=== PATIENT | male | born 1970 | race African-American/Black ===

== ENCOUNTER 2017-05-31 09:42 | Emergency (ER) | payer MEDICAID, OTHER ==
[~2017-05-31] VITALS: Ht 172.7 cm; Wt 127.0 kg
[~2017-05-31 09:42] MED LIST: ASPIR 8181 MG ORAL; ATORVASTATIN CA20 MG ORAL; BACTRIM DS TAB1 EAC1 ORAL; COLACE100 MG ORAL; COREG25 MG ORAL; FLAGYL500 MG ORAL; FLOMAX0.4 MG ORAL; HYDRALAZINE HC100 MG ORAL; IBUPROFEN600 MG ORAL; KEFLEX500 MG ORAL; NIFEDIPINE XL30 M1 ORAL; NKM; NORCO 5-325 TA1 EACH ORAL
[2017-05-31 10:21] VITALS: BP 138/82
[2017-05-31 11:23] VITALS: BP 138/82
--- NOTE | 2017-05-31 13:31 | Emergency Room Report ---
History of Present Illness General Chief Complaint: Upper Extremity Injury Source: Patient Present Illness HPI 46-year-old male presents ED complaining of right finger pain and swelling. States that this morning he was cracking his knuckles and felt a sharp pain. patient thinks he may have dislocated his finger. States swelling and pain to right middle finger. 8/10, throbbing, nonradiating. Denies any other injuries. No other aggravating relieving factors. Denies any other associated symptoms Allergies: Coded Allergies: No Known Allergies (Unverified , 04/20/13) Patient History Past Medical History: CHF, renal disease Pertinent Family History: none Social History: Denies: smoking, alcohol use, drug use Immunizations: UTD Reviewed Nursing Documentation: PMH: Agreed, PSxH: Agreed Nursing Documentation-PMH Hx Cardiac Problems: Yes - chf, renal failure Hx Cancer: No Hx Gastrointestinal Problems: No Hx Neurological Problems: No Review of Systems All Other Systems: negative except mentioned in HPI Physical Exam Vital Signs Date Time Temp Pulse Resp B/P (MAP) Pulse Ox O2 Delivery O2 Flow Rate FiO2 05/31/17 09:52 98.1 77 20 138/82 98 Room Air Sp02 EP Interpretation: reviewed, normal General Appearance: no apparent distress, alert, GCS 15, non-toxic, obese Head: normocephalic ENT: normal ENT inspection Neck: normal inspection Respiratory: normal inspection Cardiovascular #1: normal inspection Gastrointestinal: normal inspection Rectal: deferred Genitourinary: no CVA tenderness Musculoskeletal: normal range of motion, swelling - R middle finder PIP Joint swelling Neurologic: alert, oriented x3, responsive, motor strength/tone normal, sensory intact, speech normal Psychiatric: normal inspection Skin: normal inspection Lymphatic: normal inspection Procedures Splinting Splinting : Consent: Verbal Pre-Made Type: metal - figner splint Pre-Proc Neuro Vasc Exam: normal Post-Proc Neuro Vasc Exam: normal Patient Tolerated: Well Complications: None Medical Decision Making Diagnostic Impression: Primary Impression: Finger injury Qualified Codes: S69.91XA - Unspecified injury of right wrist, hand and finger (s), initial encounter ER Course Hospital Course 46-year-old M presents to ED complaining of R midde finger pain/swelling Differential diagnoses include: Fracture, dislocation, sprain, contusion Clinical course Patient placed on stretcher. After initial history and physical, I ordered Xrays of R hand patient declined pain meds Xrays prelim read shows lucency in distal proximal phalanx R middle finger ? Fx. given swelling patient placed in finger splint Diagnosis - finger injury Stable and discharged to home. apply ice, keep elevated. weight bear as tolerated. Followup with PMD. Return to ED if symptoms recur or worsen Other X-Ray Diagnostic Results Other X-Ray Diagnostic Results : X-Ray ordered: R hand # of Views/Limited Vs Complete: 1 View Indication: Pain EP Interpretation: Yes Interpretation: no dislocation, no soft tissue swelling, other - ? Fx Impression: Other - ?FX Electronically Signed by: Electronically signed by Enrico Aguila MD Last Vital Signs Date Time Temp Pulse Resp B/P (MAP) Pulse Ox O2 Delivery O2 Flow Rate FiO2 05/31/17 11:23 98.1 76 20 138/82 98 Room Air Status: improved Disposition: HOME, SELF-CARE Condition: Stable Patient Instructions: Finger Fracture, [id number] ENRICO AGUILA M.D. May 31, 2017 13:31
--- NOTE | 2017-05-31 18:32 | Diagnostic Imaging Report ---
Indication: Pain Technique: XRAY HAND MIN 3V RIGHT Comparison: None Findings: There is mild soft tissue swelling of the third digit. Small focus of mineralization at the medial aspect of the third distal interphalangeal joint is noted this appears well-corticated. Joint spaces and alignment are preserved. No radiopaque foreign body seen. IMPRESSION: Punctate focus of mineralization about the lateral aspect of the third distal interphalangeal joint may represent a tiny avulsion injury versus sequela of remote injury or accessory ossicle. Joint spaces and anatomic alignment are maintained.
== END 2017-05-31 11:42 | disposition home or self-care (01) ==
LOC: EMR 10:09
DX: S69.81XA Other specified injuries of right wrist, hand and finger(s), initial encounter (principal); X58.XXXA Exposure to other specified factors, initial encounter; Y92.9 Unspecified place or not applicable; I50.9 Heart failure, unspecified; N19 Unspecified kidney failure
CPT/HCPCS: 29130; 99283

== ENCOUNTER 2018-09-04 00:46 | Emergency (ER) | payer MEDICAID ==
[~2018-09-04] VITALS: Ht 172.7 cm; Wt 124.7 kg
[2018-09-04 00:57] VITALS: BP 140/85
--- NOTE | 2018-09-04 00:59 | NUR ---
ED Nurse Note: Patient walked into ED c/o sore throat x 1 week. no wheezing noted. no adventitious sounds noted on lung ascultation. pt O2 sat as of now is 97. pt is alert and oriented times 4.
[2018-09-04] MEDS ORDERED: Lidocaine 2% Visc 15ml soln ORAL ONE (01:00)
[2018-09-04] MEDS ORDERED: DOXYCYCLINE MO100 MG ORAL (01:12)
[2018-09-04] MEDS ORDERED: GUAIFENESIN DM118 M1 ORAL (01:12)
[2018-09-04 02:07] VITALS: BP 137/84
--- NOTE | 2018-09-04 02:09 | NUR ---
ER DISCHARGE NOTE: Patient is cleared to be discharged per ERMD, pt is aox4, on room air, with stable vital signs. pt was given dc and prescription instructions, pt was able to verbalize understanding, pt id band removed without complications. pt is able to ambulate with steady gait. pt took all belongings.
== END 2018-09-04 02:09 | disposition home or self-care (01) ==
LOC: EMR 01:02
DX: R07.0 Pain in throat (principal)
CPT/HCPCS: 99282